=== PATIENT | female | born 1960 ===

== ENCOUNTER 2016-09-01 08:12 | Inpatient (IN) | payer OTHER ==
[~2016-09-01] VITALS: Ht 167.6 cm; Wt 84.8 kg
[~2016-09-01 08:12] MED LIST: CYTOMEL25 MCG ORAL; SYNTHROID112 MCG ORAL; [UNRECOGNIZED DRUG - OTHER]; [UNRECOGNIZED DRUG - OTHER] PO
--- NOTE | 2016-09-09 18:15 | Pre-op HX & Phy Repo 2 SIG ---
DATE OF ADMISSION: 09/10/2016 HISTORY OF PRESENT ILLNESS: The patient is a 56-year-old female in overall stable health with a malfunctioning Kock pouch continent ileostomy with difficulty with intubation and persistently painful intubations and some incontinence. The patient originally had surgery in 1990 for endometriosis which resulted in severed nerves and sphincter damage. In 1992 she underwent total colectomy with creation of an ileoanal J pouch. In 1998 because her J-pouch was severely malfunctioning, she underwent takedown of the J-pouch and creation of a Kock pouch continent ileostomy. She required revision for repair of parastomal hernia in 1999. In 2012 underwent laparotomy with extensive lysis of adhesions and creation of a new valve and stoma with preservation of the existing Kock pouch and repair of a parastomal hernia because of a slipped valve. The patient had been doing well until several months ago when she noticed bulging near the stoma and difficulty inserting her intubation catheter. She usually intubates her pouch to evacuate waste and gas 6 to 8 times per day and feels that she has incomplete emptying. Her output is normal in consistency. She takes vitamin C on occasion for thick effluent. The patient had a CT scan in July 2016 of abdomen and pelvis which confirmed the presence of a parastomal hernia, but no other abnormality to explain her painful and difficult intubations. The patient is scheduled to undergo endoscopy of her Kock pouch followed by preparation for surgery and then surgery as warranted by the endoscopic and other findings. MEDICATIONS: Synthroid, Cytomel nasal spray for allergies. ALLERGIES TO MEDICATIONS: Penicillin, Ceclor, Macrodantin, Compazine, erythromycin, fentanyl, tape except for Medipore and paper tape, sulfa, Lyrica, and Neurontin. PAST SURGICAL HISTORY: In addition to the above, the patient underwent total abdominal hysterectomy in 2010. She has undergone six hip operations and two knee operations in the past. 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 The patient is arriving [id number] and will be examined upon arrival and dictated separately. IMPRESSION: 1. Malfunctioning Kock pouch continent ileostomy with multiply recurrent parastomal hernia and difficult and painful intubations and incontinence 2. History of multiple abdominal operations: 2.1. Laparotomy for severe endometriosis resulting in nerve injury and sphincter dysfunction in 1990. 2.2. Total colectomy with ileoanal J-pouch in 1992. 2.3. Kock pouch 1998. 2.4. Repair of Kock pouch parastomal hernia in 2004. 2.5. Total abdominal hysterectomy 2010. 2.6. Laparotomy with complex revision of Kock pouch with creation of new valve and stoma with extensive lysis of adhesions and repair of parastomal hernia and temporary catheter gastrostomy in July 2012. PLAN AND DISCUSSION: I have had a full discussion with the patient regarding the nature of her condition and the need for pouch endoscopy and preparation for surgery. This will include insertion of a dual lumen PICC line, intravenous hydration during her bowel prep, and preoperative intravenous antibiotics and subcutaneous heparin. The patient will undergo pouch endoscopy, which will not require anesthesia or sedation. Determination will be made whether the problem can be resolved with repair of the multiply recurrent parastomal hernia avoiding laparotomy or whether there is some additional or separate complicating problem with the pouch causing the difficulty with intubation. This will be determined upon examination including the endoscopy. I have discussed the risks of surgery including bleeding, infection, injury to adjacent structures or organs, recurrent difficulties with her Kock pouch or stoma that could require more surgery, deep vein thrombosis or other complications despite prophylaxis, anesthetic reactions, etc. all questions have been answered. She understands and agrees to proceed. Nick Armijo M.D. DR: Jessica JOB#: [id number] TAMARA
[2016-09-10 10:03] LABS: BASOPHILS % (AUTO) 0.7 % (0.0-2.0); EOSINOPHILS % (AUTO) 1.2 % (0.0-3.0); LYMPHOCYTES % (AUTO) 31.1 % (20.0-45.0); MEAN CORPUSCULAR HEMOGLOBIN 25.9 PG (27.0-31.0); MEAN CORPUSCULAR HGB CONC 31.3 G/DL (32.0-36.0); MEAN CORPUSCULAR VOLUME 83 FL (80-99); MEAN PLATELET VOLUME 8.1 FL (6.5-10.1); MONOCYTES % (AUTO) 8.5 % (1.0-10.0); NEUTROPHILS % (AUTO) 58.6 % (45.0-75.0); PLATELET COUNT 236 K/UL (150-450); RED BLOOD COUNT 5.26 M/UL (4.20-5.40); RED CELL DISTRIBUTION WIDTH 13.9 % (11.6-14.8); WHITE BLOOD COUNT 6.5 K/UL (4.8-10.8)
[2016-09-10 10:06] VITALS: BP 113/61
[2016-09-10 10:13] LABS: INR 0.9 (0.9-1.1); PROTHROMBIN TIME 9.5 SEC (9.30-11.50)
[2016-09-10 10:21] LABS: ALANINE AMINOTRANSFERASE 16 U/L (3-33); ALBUMIN/GLOBULIN RATIO 1.5 (1.0-2.7); ANION GAP 16 (5-15); ASPARTATE AMINO TRANSFERASE 20 U/L (5-40); CALCIUM 9.9 mg/dL (8.6-10.2); CARBON DIOXIDE 24 mEQ/L (20-30); CHLORIDE 104 mEQ/L (98-107); CREATININE 0.7 mg/dL (0.5-0.9); GLOMERULAR FILTRATION RATE > 60 mL/min (>60); HEMOLYSIS 2; POTASSIUM 4.4 mEQ/L (3.4-4.9); SODIUM 144 mEQ/L (135-145)
--- NOTE | 2016-09-10 11:30 | Diagnostic Imaging Report ---
Indications: Shortness of breath Technique: Portable AP chest Findings: Comparison: 07/25/2012 Cardiac silhouette remains normal in size. Pulmonary vasculature remains within normal limits. Lungs and pleura remain clear. Mild calcification of the aortic arch, thoracic vertebral osteophytes again noted. Previous PICC no longer present.. IMPRESSION: No evidence of acute disease, unchanged Interval PICC removal Stable chronic changes as described
--- NOTE | 2016-09-10 11:39 | Pre-Procedure Note/Attestation ---
Pre-Procedure Note/Attestation Complete Prior to Procedure Planned Procedure: not applicable Procedure Narrative: Kock Pouch endoscopy Indications for Procedure Pre-Operative Diagnosis: Malfunctioning Kock Pouch Attestation I attest that I discussed the nature of the procedure; its benefits; risks and complications; and alternatives (and the risks and benefits of such alternatives ), prior to the procedure, with the patient (or the patient's legal lifeline representatives). I attest that, if there was a reasonable possibility of needing a blood transfusion, the patient (or the patient's legal lifeline representatives) was given the [facility] standardized written summary, pursuant to the [place] Blood Safety Act ([place] Health and Safety Code # 1645, as amended). I attest that I re-evaluated the patient just prior to the surgery and that there has been no change in the patient's H&P, except as documented below: none EMILY DAVENPORT Sep 10, 2016 11:39
[2016-09-10] MEDS ORDERED: Heparin 2000 units/Ns 1000ml INJ ONE (11:45)
[2016-09-10] MEDS ORDERED: Lidocaine 1% Plain 30 ml INJ ONE (11:45)
[2016-09-10 12:04] LABS: APPEARANCE,URINE SLIGHTLY CLOUDY; KETONES,URINE 1+ (NEGATIVE); LEUKOCYTE ESTERASE ,URINE 3+ (NEGATIVE); NITRITE,URINE NEGATIVE (NEGATIVE); PH,URINE 5 (4.5-8.0); PROTEIN,URINE 1+ (NEGATIVE); UROBILINOGEN,URINE NORMAL MG/DL (0.0-1.0)
[2016-09-10 12:13] LABS: BACTERIA,URINE FEW /HPF; SQUAMOUS EPITHELIAL CELL,UR FEW /LPF (NONE/OCC); WBC,URINE 40-60 /HPF (0 - 2)
--- NOTE | 2016-09-10 12:13 | Brief Operative Note ---
Immediate Post Operative Note Operative Note Pre-op Diagnosis: Malfunctioning Kock Pouch Procedure: Kock Pouch endoscopy Post-op Diagnosis: Partially slipped valve; recurrent parastomal hernia Post-op Diagnosis: same as pre-op Findings: consistent w/pre-op dx studies Surgeon: gianfranco Anesthesia: other - none Specimen: none Complications: none Condition: stable Estimated Blood Loss: none Drains: other - 28 Fr ayers to Kock Pouch Implant(s) used?: EMILY Mccormack Sep 10, 2016 12:13
--- NOTE | 2016-09-10 12:15 | General Progress Note ---
Progress Note Progress Note H&P dictated. Endoscopy reveals a slight partial valve desussception. Full discussion with patient re need for laparotomy, revision Kock pouch valve, repair recurrent parastomal hernia with mesh possible relocation of stoma. EMILY DAVENPORT Sep 10, 2016 12:15
[2016-09-10] MEDS: Neomycin Sulfate 500mg Tab ORAL SCH ×3 (13:32→20:29)
--- NOTE | 2016-09-10 14:52 | Diagnostic Imaging Report ---
Indications: Long-term central IV access required for intravenous therapy Technique: The procedure indications, risks, and alternatives were explained to the patient who understands and gives consent to proceed. Strict aseptic technique was utilized, including hand washing, use of hat and mask, use of sterile gown and gloves, sterile ultrasound gel and probe cover, prepping of right arm skin with 2% chlorhexidine solution, and application of full-body sterile barrier over this area. Skin and subcutaneous soft tissues were infiltrated with 1% lidocaine and sodium bicarbonate. A small dermatotomy was made, through which the larger of two patent, adequate size right brachial veins was punctured percutaneously under direct sonographic guidance with a 21-gauge needle. Exchange was made over a 0.018 inch guidewire for a 5 Maori peel-away sheath. A [employer] Power-PICC 5 Maori dual lumen central venous catheter was cut to appropriate length, then advanced through the sheath over the guidewire under direct fluoroscopic guidance into the superior vena cava. Guidewire and sheath were removed. Both catheter ports were aspirated, then flushed with heparinized saline. Final image was obtained. Catheter was secured the skin with adhesive dressing. Patient tolerated procedure well without immediate complications. Total fluoroscopy time: 0.1 minutes. Dose-area product: 2.1 dGy-cm2 Findings: Final image demonstrates tip of the central venous catheter at the level of superior vena cava-right atrial junction, 37 cm in from the skin. Both ports aspirate and flush freely. IMPRESSION:? Placement of peripherally inserted central venous catheter via right brachial vein, working well.
[2016-09-10 16:05] VITALS: BP 139/70
--- NOTE | 2016-09-10 16:11 | Consultation ---
Consult Note Consult Note Chart reviewed, Patient examined. 56 year old female with h/o chest pain, possible old LA with normal coronary angiogram who developed RCA osteal stenosis during angiography and has been diagnosed with Prinzmetal angina. Patient is admitted for revision of Kock pouch. Her cardiac status has been relatively stable and she has has used NTG SL very occasionally, but lives a sedentary life style. EKG : WNL Imp: 1. Malfunctioning Kock pouch 2.H/O chest pain- stable 3. Normal coronary anatomy with possible Prinzmetal angina. 4. Remote h/o smoking. Plan: May proceed with surgery suggest cardiac monitoring for 24 hours post OP NTG PRN will follow. Jose Heredia M.D. PATY HEREDIA Sep 10, 2016 16:11
--- NOTE | 2016-09-10 17:00 | Pre-op HX & Phy Repo 2 SIG ---
DATE OF ADMISSION: 09/10/2016 HISTORY OF PRESENT ILLNESS: [place] Please see previously dictated history. PHYSICAL EXAMINATION: GENERAL: She is well developed and well nourished, 5 feet 6 inches, approximately 200 pounds. VITAL SIGNS: Within normal limits. HEENT: Within normal limits. LUNGS: Clear. HEART: Regular rhythm. BREASTS: Without masses. ABDOMEN: Soft, flat, slightly obese. There is a curvilinear vertical incision in left paramedian location from midepigastrium to pubis. The stoma of the Kock pouch is low in the right lower quadrant with a 5 cm x 6 cm reducible parastomal hernia. There is no evidence of incisional hernia. PELVIC: Status post hysterectomy. RECTAL: Status post proctocolectomy with minimal rectal stump. EXTREMITIES: Without edema. Pulses 2+ femoral to pedal bilateral NEUROLOGIC: Physiologic. IMPRESSION: 1. Malfunctioning Kock pouch continent ileostomy with difficult and painful intubation and incontinence and multiply recurrent parastomal hernia. 2. History of Prinzmetal angina. 3. History of multiple hip and knee operations with metallosis. 4. Hypothyroidism. 5. Neurogenic bladder on timed voiding 6. Status post multiple abdominal operations. 1. Laparotomy for severe endometriosis resulting in nerve injury and sphincter dysfunction in 1990. 2. Total colectomy with ileoanal J pouch in 1992. 3. Kock pouch in 1998. 4. Repair of Kock pouch parastomal hernia in 2004. 5. Total abdominal hysterectomy in 2010. 6. Laparotomy with complex revision of Kock pouch with creation of new valve and stoma with extensive lysis of adhesions and repair of parastomal hernia and temporary gastrostomy in July 2012. DISCUSSION: In view of the endoscopy findings revealing a partially slipped valve, the patient will require laparotomy as well as possible takedown of the stoma, possible relocation of the stoma and repair of the recurrent parastomal hernia, likely requiring mesh. I have had a full discussion with the patient regarding the nature of the surgery, indications, alternatives, options, and risks including bleeding, infection, injury to adjacent structures or organs, deep vein thrombosis despite prophylaxis, recurrent difficulties with the Kock pouch or stoma that require could require additional surgery, etc. All questions have been answered. She understands and agrees to proceed. Don Judie Armijo DR: PRACHI JOB#: [id number] MTDRadha
[2016-09-10] MEDS: D5 1/2NS w/KCl 20mEq 1,000 ML IV SCH (17:52)
--- NOTE | 2016-09-10 18:15 | Procedure Note ---
DATE OF PROCEDURE: 09/10/2016 ENDOSCOPY PROCEDURE REPORT ENDOSCOPIST: Nick Armijo M.D. ANESTHESIA: None. SEDATION: None. TYPE OF ENDOSCOPY: Kock pouch endoscopy. PRE-ENDOSCOPY DIAGNOSES: 1. Malfunctioning Kock pouch continent ileostomy with difficult and painful intubations and incontinence. 2. History of total colectomy with ileoanal J-pouch, which subsequently failed, converted to Kock pouch. 3. Original surgery for endometriosis resulting in nerve injury and sphincter dysfunction in 1990. 4. Most recent revision of Kock pouch in July 2012 with creation of new valve POST-ENDOSCOPY DIAGNOSES: 1. Malfunctioning Kock pouch continent ileostomy with difficult and painful intubations and incontinence. 2. History of total colectomy with ileoanal J-pouch, which subsequently failed, converted to Kock pouch. 3. Original surgery for endometriosis resulting in nerve injury and sphincter dysfunction in 1990. 4. Most recent revision of Kock pouch in July 2012 with creation of new valve ENDOSCOPY PERFORMED: Kock pouch endoscopy. DESCRIPTION OF PROCEDURE: The patient was positioned supine in the GI lab without requiring any anesthesia or sedation. Using a GIF-P140 endoscope the stoma was entered. The distance to the tip of the nipple valve was 10 to 11 cm, slightly redundant. The pouch is distensible and of good capacity. the mucosa appears completely normal. Retroflexed views revealed the nipple valve with a small 5 to 10% desussception, but otherwise it was well-formed. Withdrawal views confirmed the above findings including an angulation at approximately 8 cm deep. After removing the endoscope, I was able to manipulate a 28-Marshallese Gutierrez catheter into the pouch with some degree of manipulation and mild patient discomfort. It was flushed and secured to the skin with tape and connected to a gravity drainage bag. The patient will be prepared for surgery. She tolerated the endoscopy well. Nick Armijo M.D. DR: SARA JOB#: [id number] TAMARA
[2016-09-10 20:00] VITALS: BP 111/78
--- NOTE | 2016-09-10 20:24 | Anethesia Preoperative Eval ---
Anesthesia Pre-op PMH/ROS General Date of Evaluation: Sep 10, 2016 Anesthesiologist: Magdi ASA Score: ASA 3 Mallampati Score Class I : Soft palate, uvula, fauces, pillars visible Class II: Soft palate, uvula, fauces visible Class III: Soft palate, base of uvula visible Class IV: Only hard plate visible Mallampati Classification: Class II Surgeon: Zofia Diagnosis: Malfunctioning kock pouch Surgical Procedure: REvision francisco pouch Anesthesia History: none, PONV - severe Family History: no anesthesia problems Allergies: Coded Allergies: CEFACLOR (Verified Allergy, Severe, Hives, 06/22/12) ERYTHROMYCIN BASE (Verified Allergy, Severe, Rash, 06/22/12) NITROFURANTOIN MACROCRYSTAL (Verified Allergy, Severe, Itching, 06/22/12) PENICILLINS (Verified Allergy, Severe, Anaphylaxis, 06/22/12) PROPOXYPHENE HCL (Verified Allergy, Severe, Hives, 06/22/12) SULFASALAZINE (Verified Allergy, Severe, Hives, 06/22/12) FENTANYL (Verified Adverse Reaction, Intermediate, throw up, 06/22/12) PROCHLORPERAZINE EDISYLATE (Verified Adverse Reaction, LEUKOPENIA, 08/03/12 ) COPIED FROM UNCODED SECTION PROCHLORPERAZINE MALEATE (Verified Adverse Reaction, LEUKOPENIA, 08/03/12) COPIED FROM UNCODED SECTION Uncoded Allergies: COCONUT (Allergy, Severe, 07/25/12) tapes (Allergy, Severe, blisters, 06/22/12) Medications: see eMAR Past Medical History Cardiovascular: Reports: [place] - 6 years ago, arrhythmia - baseline bradycardic, other - h/o prinzmetals angina-precipitate by stress as per patient, Denies: CAD, HTN, valve dz Pulmonary: Reports: JIMMY - mild, no cpap at the time as patient couldnt tolerate it, Denies: COPD, asthma, other Gastrointestinal/Genitourinary: Reports: GERD, Denies: CRI, ESRD, other Neurologic/Psychiatric: Reports: depression/anxiety - severe anxiety, Denies: CVA, TIA, dementia, other Endocrine: Reports: hypothyroidism, Denies: DM, other, steroids HEENT: Denies: [place] (L), [place] (R), cataract (L), cataract (R), glaucoma, other Hematology/Immune: Reports: anemia - chronic , Denies: DVT, bleeding disorder, other Musculoskeletal/Integumentary: Reports: other - bialteral chronic lower extremity pain, Denies: DDD, DJD, OA, RA, edema Other: obesity PSxH Narrative: Bilateral THR's, right knee arthroscopy, francisco pouch, CASEY, T&A Anesthesia Pre-op Phys. Exam Physician Exam Last Vital Signs Date Time Temp Pulse Resp B/P Pulse Ox O2 Delivery O2 Flow Rate FiO2 09/10/16 16:05 96.8 76 20 139/70 97 Room Air Constitutional: other - Patient AAOx3, cooperative, but fairly anxious about the surgery, tearful Cardiovascular: RRR Respiratory: CTA Airway Exam Mallampati Score: Class II MO: full ROM: full Teeth: intact, other - no dentures, +fixed implants Dentures: no lower, no upper Anesthesia Pre-op A/P Labs Hematology Test 09/10/16 09:40 White Blood Count 6.5 K/UL (4.8-10.8) Red Blood Count 5.26 M/UL (4.20-5.40) Hemoglobin 13.6 G/DL (12.0-16.0) Hematocrit 43.5 % (37.0-47.0) Mean Corpuscular Volume 83 FL (80-99) Mean Corpuscular Hemoglobin 25.9 PG (27.0-31.0) L Mean Corpuscular Hemoglobin Concent 31.3 G/DL (32.0-36.0) L Red Cell Distribution Width 13.9 % (11.6-14.8) Platelet Count 236 K/UL (150-450) Mean Platelet Volume 8.1 FL (6.5-10.1) Neutrophils (%) (Auto) 58.6 % (45.0-75.0) Lymphocytes (%) (Auto) 31.1 % (20.0-45.0) Monocytes (%) (Auto) 8.5 % (1.0-10.0) Eosinophils (%) (Auto) 1.2 % (0.0-3.0) Basophils (%) (Auto) 0.7 % (0.0-2.0) Coagulation Test 09/10/16 09:40 Prothrombin Time 9.5 SEC (9.30-11.50) Prothromb Time International Ratio 0.9 (0.9-1.1) Activated Partial Thromboplast Time 26 SEC (23-33) Chemistry Test 09/10/16 09:40 Sodium Level 144 mEQ/L (135-145) Potassium Level 4.4 mEQ/L (3.4-4.9) Chloride Level 104 mEQ/L (98-107) Carbon Dioxide Level 24 mEQ/L (20-30) Anion Gap 16 (5-15) H Blood Urea Nitrogen 13 mg/dL (7-23) Creatinine 0.7 mg/dL (0.5-0.9) Estimat Glomerular Filtration Rate > 60 mL/min (>60) Glucose Level 106 mg/dL (74-106) Calcium Level 9.9 mg/dL (8.6-10.2) Total Bilirubin 0.5 mg/dL (0.0-1.2) Aspartate Amino Transf (AST/SGOT) 20 U/L (5-40) Alanine Aminotransferase (ALT/SGPT) 16 U/L (3-33) Alkaline Phosphatase 112 U/L (35-104) H Total Protein 7.0 g/dL (6.6-8.7) Albumin 4.2 g/dL (3.5-5.2) Globulin 2.8 g/dL Albumin/Globulin Ratio 1.5 (1.0-2.7) Studies Pre-op Studies: EKG - sr Risk Assessment & Plan Assessment: ASA III Plan: GA-ETT, patient reports multiple allergies including fentanyl and morphine which cause her projectile vomitting. She States that dilaudid and demerol work best for her in combination with benadryl prophylactically as she gets severe itchiness. Also reports severe allergy to most tapes, except paper tape Status Change Before Surgery: No Pre-Antibiotics Drug: MARTA SHAH M.D. Sep 10, 2016 20:24
[2016-09-10] MEDS ORDERED: Norco 5mg/325mg tab ORAL PRN (21:00)
[2016-09-11] VITALS (15 sets, daily range): BP systolic 124–152; BP diastolic 63–78
[2016-09-11] MEDS: metroNIDAZOLE 500mg 100 ML IVPB SCH ×4 (01:06→18:50)
[2016-09-11] MEDS: D5 1/2NS w/KCl 20mEq 1,000 ML IV SCH ×2 (01:43→14:00)
--- NOTE | 2016-09-11 08:40 | Pre-Procedure Note/Attestation ---
Pre-Procedure Note/Attestation Complete Prior to Procedure Planned Procedure: not applicable Procedure Narrative: laparotomy with revision Kock Pouch, repair recurrent parastomal hernia, gastrostomy Indications for Procedure Pre-Operative Diagnosis: Malfunctioning Kock Pouch Attestation I attest that I discussed the nature of the procedure; its benefits; risks and complications; and alternatives (and the risks and benefits of such alternatives ), prior to the procedure, with the patient (or the patient's legal safety representative). I attest that, if there was a reasonable possibility of needing a blood transfusion, the patient (or the patient's legal safety representative) was given the [facility] standardized written summary, pursuant to the [place] Blood Safety Act ([place] Health and Safety Code # 1645, as amended). I attest that I re-evaluated the patient just prior to the surgery and that there has been no change in the patient's H&P, except as documented below: none EMILY DAVENPORT Sep 11, 2016 08:40
[2016-09-11] MEDS: Liothyronine 5mcg tab ORAL SCH (09:00)
[2016-09-11] MEDS ORDERED: Heparin 5000 units/ml inj SUBQ ONE (09:00)
[2016-09-11] MEDS ORDERED: Bacitracin 50000 Units Vial ONE (09:34)
--- NOTE | 2016-09-11 10:12 | Cardiology Progress Note ---
Assessment/Plan Status Narrative 1. Malfunctioning Kock Pouch 2. Possible Prinzmetal angina-stable 3. Normal LV function Assessment/Plan Stable for surgery. Teler monitoring 24 hours post op will follow as needed.. Subjective Cardiovascular: Reports: no symptoms Respiratory: Reports: no symptoms Gastrointestinal/Abdominal: Reports: no symptoms Genitourinary: Reports: no symptoms Subjective Awaiting surgery today Objective Last 24 Hour Vital Signs Date Time Temp Pulse Resp B/P Pulse Ox O2 Delivery O2 Flow Rate FiO2 09/11/16 08:00 97.0 82 20 136/78 95 Room Air 09/11/16 04:00 97.8 54 18 134/67 99 Room Air 09/11/16 00:00 97.4 57 18 124/63 100 Room Air 09/10/16 20:00 97.8 68 18 111/78 99 Room Air 09/10/16 16:05 96.8 76 20 139/70 97 Room Air Cardiovascular: normal rate, regular rhythm, no gallop/murmur Respiratory/Chest: chest wall non-tender, lungs clear, normal breath sounds Abdomen: normal bowel sounds, non tender, soft, no organomegaly Extremities: non-tender, normal inspection, no swelling Intake and Output 09/10/16 09/11/16 19:00 07:00 Intake Total 1035 ml 1140 ml Output Total 200 ml 1220 ml Balance 835 ml -80 ml Intake Oral 935 ml 240 ml IV Total 100 ml 900 ml Output Urine Total 200 ml 400 ml Other 820 ml # Voids 2 2 Laboratory Tests Test 09/10/16 11:30 Urine Color Pale yellow Urine Appearance Slightly cloudy Urine pH 5 (4.5-8.0) Urine Specific [place] 1.025 (1.005-1.035) Urine Protein 1+ (NEGATIVE) H Urine Glucose (UA) Negative (NEGATIVE) Urine Ketones 1+ (NEGATIVE) H Urine Occult Blood 2+ (NEGATIVE) H Urine Nitrite Negative (NEGATIVE) Urine Bilirubin Negative (NEGATIVE) Urine Urobilinogen Normal MG/DL (0.0-1.0) Urine Leukocyte Esterase 3+ (NEGATIVE) H Urine RBC 2-4 /HPF (0 - 2) H Urine WBC 40-60 /HPF (0 - 2) H Urine Squamous Epithelial Cells Few /LPF (NONE/OCC) Urine Bacteria Few /HPF (NONE) PATY PRASAD Sep 11, 2016 10:11
[2016-09-11] MEDS ORDERED: NS Irrig 1000ml ONE ×2 (10:24→11:00)
[2016-09-11] MEDS ORDERED: Tubing IV Secondary IV ONE (10:24)
[2016-09-11] MEDS ORDERED: Nitroglycerin Subl 0.4mg tab (Bottle Of 25) SL PRN (10:45)
[2016-09-11] MEDS ORDERED: DiphenhydrAMINE 50mg/ml Inj ONE (10:57)
[2016-09-11] MEDS ORDERED: ePHEDrine 50mg/ml Inj ONE (11:00)
[2016-09-11] MEDS ORDERED: fentaNYL 250mcg/5ml ONE (11:00)
[2016-09-11] MEDS ORDERED: Sterile Water Irrig 1000ml IRRIG ONE (11:00)
[2016-09-11] MEDS ORDERED: LR 1000ml ONE (11:00)
[2016-09-11] MEDS ORDERED: Propofol 10mg/ml 20ml IV ONE (11:00)
[2016-09-11] MEDS ORDERED: Nimbex 2mg/ml Inj 10ML IVP ONE (11:00)
[2016-09-11] MEDS ORDERED: Midazolam 2mg/2ml Inj ONE (11:00)
[2016-09-11] MEDS ORDERED: Glycopyrrolate 0.2mg/ml 1ml Vial ONE (11:00)
[2016-09-11] MEDS ORDERED: Neostigmine 1mg/ml 10ml Inj ONE (11:00)
[2016-09-11] MEDS ORDERED: Ketorolac 30mg Inj ONE (11:00)
[2016-09-11] MEDS ORDERED: metroNIDAZOLE 500mg 100 ML IV SCH (12:00)
[2016-09-11] MEDS ORDERED: Dyna-Hex 2% Top Sol 8oz TOPIC SCH (12:00)
[2016-09-11] MEDS ORDERED: Ketorolac 30mg Inj IV PRN (12:30)
[2016-09-11] MEDS ORDERED: Midazolam 2mg/2ml Inj IVP PRN (12:30)
[2016-09-11] MEDS ORDERED: Meperidine 25mg/0.5ml Inj (FOR RIGORS ONLY) IV PRN (12:30)
[2016-09-11] MEDS ORDERED: Metoclopramide 10mg/2ml Inj IVP PRN ×2 (12:30→16:00)
[2016-09-11] MEDS ORDERED: LR 1000ml 1,000 ML IVLG SCH (12:30)
[2016-09-11] MEDS ORDERED: DiphenhydrAMINE 50mg/ml Inj IVP PRN (12:30)
[2016-09-11] MEDS ORDERED: Hydromorphone 0.5mg/0.5ml inj IVP PRN (12:30)
--- NOTE | 2016-09-11 14:30 | Consultation ---
DATE OF CONSULTATION: 09/10/2016 CARDIOLOGY CONSULTATION ATTENDING PHYSICIAN: Nick Armijo M.D. REASON FOR CONSULTATION: Preoperative cardiac evaluation. HISTORY OF PRESENT ILLNESS: The patient is a 56-year-old female with history of malfunctioning ileostomy, who has been admitted for revision of a Kock pouch. The patient has history of chest pain in the past and has had previous cardiac workup with angiography, which has shown normal coronary arteries with evidence of possible right coronary artery, also spasm during the angiography. The patient has been diagnosed with Prinzmetal angina and has been given nitroglycerin p.r.n. for control of chest pain. The patient has had episodes of chest pain on and off, but over the past year she has been stable with some occasional chest pain episodes. The patient has not tolerated calcium channel blockers or long-acting nitrates because of symptoms. The patient has been sedentary, but is able to manage her daily activities without difficulty. She has had multiple surgeries over the past few years without complications or cardiac events. Her echocardiogram shows normal LV systolic function. EKG done preoperatively is within normal limits. The patient denies chest pain or shortness of breath. PAST MEDICAL HISTORY: 1. Ulcerative colitis, status post ileostomy. 2. 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 3. History of normal coronary artery with possible Prinzmetal angina as noted above. 4. Remote history of smoking. MEDICATIONS: Cytomel 50 mcg daily, Levaquin IV q. 24 hours, levothyroxine 112 mcg daily, and Zofran p.r.n. PHYSICAL EXAMINATION: VITAL SIGNS: Blood pressure is 139/70, temperature afebrile, and heart rate is 76. GENERAL: The patient is alert, oriented, pleasant female, in no apparent distress. HEENT: Unremarkable. NECK: Supple. LUNGS: Without rales or wheezes. CARDIAC: S1 and S2 are normal without S3, S4. Jugular venous pressure is normal. ABDOMEN: Soft and nontender. Bowel sounds are present. EXTREMITIES: Without cyanosis, clubbing, or edema. DIAGNOSTIC AND LABORATORY DATA: EKG is within normal limits. Laboratory data reviewed. Prior hospital records with angiography and stress test as well as echocardiography reviewed from outside hospital. IMPRESSION: 1. Malfunctioning Kock pouch. 2. Possible Prinzmetal angina. 3. Remote history of smoking. 4. Hypothyroidism. PLAN: The patient is stable to proceed with surgery as her symptoms are stable and she does not have exertional angina. She may use nitroglycerin as needed postoperatively. It would be prudent to monitor her in telemetry for the first [address] Armijo, thank you for allowing me to participate in the care of this patient and I will be happy to follow with you as necessary. Anam Heredia M.D. DR: DEB JOB#: [id number] CC:
--- NOTE | 2016-09-11 14:31 | Brief Operative Note ---
Immediate Post Operative Note Operative Note Pre-op Diagnosis: Malfunctioning Kock Pouch Procedure: Laparotomy with revision Kock Pouch access segment and stoma; repair recurrent parastomal hernia; gastrostomy Post-op Diagnosis: Redundant Kock Pouch access segment; recurrent parastomal hernia Post-op Diagnosis: same as pre-op Findings: consistent w/pre-op dx studies Surgeon: gianfranco Land Surveyor Manager: talat Anesthesiologist: berenice Anesthesia: general Specimen: yes - Kock pouch stoma Complications: none Condition: stable Fluids: see anesthesia record Estimated Blood Loss: volume - 100ml Drains: other - 28 Fr Gutierrez to Kock pouch; 18 Fr gastrostomy Implant(s) used?: No EMILY DAVENPORT Sep 11, 2016 14:31
[2016-09-11] MEDS ORDERED: PCA HYDROmorphone 1mg/ml 30 ML IV ONE (15:35)
[2016-09-11] MEDS ORDERED: PCA HYDROmorphone 1mg/ml 30 ML IV PRN (15:35)
[2016-09-11] MEDS ORDERED: LORazepam 1mg tab SL PRN ×2 (16:00)
[2016-09-11] MEDS ORDERED: Rate Change PCA 1 Each MISC PRN (16:00)
[2016-09-11] MEDS ORDERED: Naloxone 0.4mg/ml Inj IVP PRN (16:00)
[2016-09-11] MEDS ORDERED: Acetaminophen 650mg/20.3ml GT PRN (16:00)
[2016-09-11] MEDS: D5 1/4NS w/KCl 20mEq 1,000 ML IV SCH (18:49)
[2016-09-11] MEDS: PCA shift volume MISC SCH (19:00)
[2016-09-11] MEDS: DiphenhydrAMINE 50mg/ml Inj IVP PRN (21:31)
--- NOTE | 2016-09-11 22:30 | Operative Note - Dictated ---
DATE OF OPERATION: 09/11/2016 SURGEON: Nick Armijo M.D. [employer]ORATORY TECHNICIAN SURGEON: Kike Morrell M.D. ANESTHESIOLOGIST: Ihsan Phillips M.D. TYPE OF ANESTHESIA: General endotracheal. PREOPERATIVE DIAGNOSES: 1. Malfunctioning Kock pouch continent ileostomy and recurrent parastomal hernia. 2. History of multiple abdominal operations: 2.1. 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 2.2. Total colectomy with ileoanal J-pouch in 1992. 2.3. Kock pouch 1998. 2.4. Repair of Kock pouch parastomal hernia 2004. 2.5. Total abdominal hysterectomy 2010. 2.6. Laparotomy with complex revision of Kock pouch with creation of new valve and stoma with extensive lysis of adhesions and repair of parastomal hernia and temporary catheter gastrostomy in July 2012. POSTOPERATIVE DIAGNOSES: 1. Malfunctioning Kock pouch continent ileostomy and recurrent parastomal hernia. 2. History of multiple abdominal operations: 3. 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 3.1. Total colectomy with ileoanal J-pouch in 1992. 3.2. Kock pouch 1998. 3.3. Repair of Kock pouch parastomal hernia 2004. 3.4. Total abdominal hysterectomy 2010. 3.5. Laparotomy with complex revision of Kock pouch with creation of new valve and stoma with extensive lysis of adhesions and repair of parastomal hernia and temporary catheter gastrostomy in July 2012. OPERATIONS PERFORMED: 1. Laparotomy with revision of Kock pouch access segment and stoma. 2. Repair of recurrent parastomal hernia. 3. Catheter gastrostomy. DESCRIPTION OF PROCEDURE: The patient was taken to the operating room and under general endotracheal anesthesia with sequential compression device stockings and Gutierrez catheter in place and having received preoperative intravenous antibiotics and subcutaneous heparin, the patient was prepped and draped in the usual fashion. The stoma in the right lower quadrant was covered with a Betadine soaked Ray-Patti. The left paramedian incision was reopened from midepigastrium to pubis. There were diffuse adhesions to the anterior abdominal wall and throughout the abdomen. These were taken down and the abdomen explored. A 28-Greenlandic Gutierrez catheter was placed into the stoma and could be manipulated into the pouch. It was clear that the access segment was quite redundant and angulated. There was a loop of small bowel densely adherent within the parastomal hernia and this was taken down. A serosal tear was closed with 3-0 silk suture. The pouch was extremely densely adherent to the undersurface of the bladder and the right gutter and into the pelvis. I was able to identify the afferent bowel coming up from the pouch retrograde. I made an elliptical incision around the stoma in the right lower quadrant transversely oriented and brought the stoma and access segment into the abdomen. Now with the redundant access segment on stretch, a 28-Greenlandic Gutierrez catheter readily entered the pouch. The afferent bowel was manually occluded and the pouch was now distended with 500 mL of saline. There was no extravasation. The catheter was removed and there was no incontinence indicating that the nipple valve was competent. The catheter was reintroduced and the pouch decompressed. I felt that to fully mobilize the pouch would likely result in injury to the pouch, which could lead to having to resect it. Throughout the procedure, the abdominal wall was protected with antibiotic soaked laps and liberal antibiotic irrigation including the stoma site. Now I extended the peristomal incision laterally and was able to identify the abdominal wall fascia of the hernia defect. I used #1 Prolene interrupted inverted [id number] sutures starting at the apex and using three sutures to close the parastomal hernia, but leaving adequate room for the access segment to come back through the same location of the stoma. The abdomen was inspected and hemostasis secured with cautery. The bladder and ureters were protected during the procedure. Now the lateral aspect of the extended peristomal incision was closed with subcutaneous interrupted 3-0 Vicryl and 4-0 Monocryl subcuticular suture. The access segment was brought through the abdominal wall and the 28-Greenlandic Gutierrez readily went through into the pouch. The redundant access segment was excised and the stoma primarily matured with continuous 2-0 chromic locking full-thickness sutures starting at the 3 o'clock and 9 o'clock positions. A very satisfactory stoma was achieved. The pouch catheter was appropriately positioned in the apex of the pouch and then it was sutured to the skin with two sutures of 2-0 silk and marked at the level of the stoma with a 3-0 silk suture. The catheter was flushed and connected to a gravity drainage bag. The bowel loops were all replaced anatomically. In view of all the dissection and manipulation, I felt that decompression with a catheter gastrostomy was indicated. Prior gastrostomy site was taken down and through a separate stab incision in the left upper quadrant an 18-Greenlandic Gutierrez catheter was brought through the abdominal wall, placed into the stomach greater curve anterior wall body between two concentric 2-0 chromic pursestring sutures with the balloon inflated and positioned in the fundus and the stomach sutured to the anterior abdominal wall with multiple interrupted 3-0 silk sutures. The catheter was sutured to the skin with a 2-0 silk suture. The catheter was then flushed and connected to a gravity drainage bag. The field in the abdomen and pelvis was inspected again and hemostasis was satisfactory. The paramedian incision was closed in one layer with continuous #1 Prolene starting at both ends and inverting the knots. Subcutaneous tissues were again irrigated with antibiotic solution, and skin closed with milana. Dry sterile dressings were applied. Final sponge and needle counts were correct. The patient tolerated the procedure well and left the operating room in stable condition. Nick Armijo M.D. DR: Jessica JOB#: [id number] MTDD
[2016-09-12] VITALS: BP 128/59
[2016-09-12] MEDS: metroNIDAZOLE 500mg 100 ML IVPB SCH ×4 (00:11→18:16)
[2016-09-12] MEDS: DiphenhydrAMINE 50mg/ml Inj IVP PRN ×4 (03:35→21:02)
[2016-09-12 04:00] VITALS: BP 116/67
[2016-09-12] MEDS: D5 1/4NS w/KCl 20mEq 1,000 ML IV SCH ×3 (04:30→17:06)
[2016-09-12] MEDS: Liothyronine 5mcg tab ORAL SCH (06:05)
[2016-09-12] MEDS: PCA shift volume MISC SCH ×3 (07:00→19:24)
[2016-09-12 07:48] LABS: BASOPHILS % (AUTO) 0.5 % (0.0-2.0); EOSINOPHILS % (AUTO) 0.9 % (0.0-3.0); LYMPHOCYTES % (AUTO) 22.1 % (20.0-45.0); MEAN CORPUSCULAR HEMOGLOBIN 26.3 PG (27.0-31.0); MEAN CORPUSCULAR HGB CONC 29.2 G/DL (32.0-36.0); MEAN CORPUSCULAR VOLUME 90 FL (80-99); MEAN PLATELET VOLUME 8.4 FL (6.5-10.1); MONOCYTES % (AUTO) 10.8 % (1.0-10.0); NEUTROPHILS % (AUTO) 65.8 % (45.0-75.0); PLATELET COUNT 122 K/UL (150-450); RED BLOOD COUNT 3.28 M/UL (4.20-5.40); RED CELL DISTRIBUTION WIDTH 15.1 % (11.6-14.8); WHITE BLOOD COUNT 5.3 K/UL (4.8-10.8)
[2016-09-12 08:00] VITALS: BP 131/62
--- NOTE | 2016-09-12 08:14 | General Progress Note ---
Progress Note Progress Note AVSS Doing well with some pruritus but comfortable with Dilaudid HELP DESK AGENT. Chest - clear Cor - reg rhythm Abdomen - mild soft distention, incision clean ,stoma pink Overnight: Urine 450 Gastrostomy 30 bilious Kock pouch ileo 30 serous WBC 5300 Hgb 8.6 Platelets 122,000 BMP - wnl Imp. Ileus Anemia - no evidence for acute bleeding Plan: NPO Iron panel, B12 level, folate level; f/u CBC 1700 today and in AM Transfer to [facility] (no need for telemetry now) Mobilize EMILY DAVENPORT Sep 12, 2016 08:14
[2016-09-12 08:27] LABS: ANION GAP 11 (5-15); CALCIUM 8.2 mg/dL (8.6-10.2); CARBON DIOXIDE 25 mEQ/L (20-30); CHLORIDE 102 mEQ/L (98-107); CREATININE 0.7 mg/dL (0.5-0.9); GLOMERULAR FILTRATION RATE > 60 mL/min (>60); HEMOLYSIS 13; POTASSIUM 3.9 mEQ/L (3.4-4.9); SODIUM 138 mEQ/L (135-145)
[2016-09-12] MEDS ORDERED: Dyna-Hex 2% Top Sol 8oz TOPIC SCH (09:00)
[2016-09-12] MEDS ORDERED: Naloxone 0.4mg/ml Inj IVP PRN (09:00)
[2016-09-12] MEDS ORDERED: DiphenhydrAMINE 50mg/ml Inj IVP PRN (09:00)
[2016-09-12] MEDS: Dyna-Hex 2% Top Sol 8oz TOPIC SCH (09:00)
[2016-09-12] MEDS ORDERED: Rate Change PCA 1 Each MISC PRN (09:00)
[2016-09-12] MEDS ORDERED: Nitroglycerin Subl 0.4mg tab (Bottle Of 25) SL PRN (09:00)
[2016-09-12 09:14] LABS: HEMOLYSIS 6; IRON 58 ug/dL (37-145); TOTAL IRON BINDING CAPACITY 304 ug/dL (250-400)
[2016-09-12] MEDS ORDERED: Norco 5mg/325mg tab ORAL PRN (10:00)
[2016-09-12] MEDS ORDERED: Metoclopramide 10mg/2ml Inj IVP PRN (10:00)
--- NOTE | 2016-09-12 10:00 | 48 Hour Post Anesthesia Eval ---
Post Anesthesia Evaluation Procedure: Laparotomy, revision kock pouch Date of Evaluation: Sep 12, 2016 Time of Evaluation: 08:10 Blood Pressure Systolic: 131 0: 62 Pulse Rate: 79 Respiratory Rate: 17 Temperature (Fahrenheit): 99.1 O2 Sat by Pulse Oximetry: 99 Airway: patent Nausea: No Vomiting: No Pain Intensity: 2 Hydration Status: adequate Cardiopulmonary Status: at baseline Mental Status/LOC: patient returned to baseline Post-Anesthesia Complications: 0 Follow-up care needed: N/A - further care as per primary team MARTA RUIZ M.D. Sep 12, 2016 10:00
[2016-09-12 12:00] VITALS: BP 124/71
[2016-09-12] MEDS ORDERED: LORazepam 1mg tab SL PRN ×2 (12:00→21:00)
[2016-09-12] MEDS ORDERED: Acetaminophen 650mg/20.3ml GT PRN (12:00)
[2016-09-12] MEDS ORDERED: Vitamin B12 1000mcg/ml Inj IM ONE (15:30)
[2016-09-12 16:00] VITALS: BP 125/61
[2016-09-12 17:57] LABS: BASOPHILS % (AUTO) 0.6 % (0.0-2.0); EOSINOPHILS % (AUTO) 0.6 % (0.0-3.0); LYMPHOCYTES % (AUTO) 24.1 % (20.0-45.0); MEAN CORPUSCULAR HGB CONC 32.4 G/DL (32.0-36.0); MEAN CORPUSCULAR VOLUME 83 FL (80-99); MEAN PLATELET VOLUME 9.3 FL (6.5-10.1); NEUTROPHILS % (AUTO) 64.7 % (45.0-75.0); PLATELET COUNT 139 K/UL (150-450); RED BLOOD COUNT 3.65 M/UL (4.20-5.40); WHITE BLOOD COUNT 6.2 K/UL (4.8-10.8)
[2016-09-12] MEDS ORDERED: NS 550ML IV ONE (18:08)
[2016-09-12] MEDS: PCA HYDROmorphone 1mg/ml 30 ML IV PRN (18:24)
[2016-09-12 20:11] VITALS: BP 116/62
[2016-09-12] MEDS: Iron Sucrose 100 MG in NS 55 ML IVPB SCH (21:02)
[2016-09-13 00:08] VITALS: BP 117/59
[2016-09-13] MEDS: HydrOXYzine 50mg cap ORAL PRN ×3 (01:23→20:06)
[2016-09-13] MEDS: metroNIDAZOLE 500mg 100 ML IVPB SCH ×2 (01:23→06:23)
[2016-09-13] MEDS: DiphenhydrAMINE 50mg/ml Inj IVP PRN ×5 (03:21→22:41)
[2016-09-13 04:00] VITALS: BP 108/57
[2016-09-13] MEDS: D5 1/4NS w/KCl 20mEq 1,000 ML IV SCH ×2 (04:18→16:11)
[2016-09-13 05:44] LABS: ANION GAP 12 (5-15); CALCIUM 8.5 mg/dL (8.6-10.2); CARBON DIOXIDE 26 mEQ/L (20-30); CHLORIDE 105 mEQ/L (98-107); CREATININE 0.7 mg/dL (0.5-0.9); GLOMERULAR FILTRATION RATE > 60 mL/min (>60); HEMOLYSIS 11; POTASSIUM 3.7 mEQ/L (3.4-4.9); SODIUM 143 mEQ/L (135-145)
[2016-09-13] MEDS: Liothyronine 5mcg tab ORAL SCH (06:27)
[2016-09-13] MEDS: PCA shift volume MISC SCH ×2 (07:00→19:27)
[2016-09-13 08:06] VITALS: BP 114/60
[2016-09-13] MEDS: Dyna-Hex 2% Top Sol 8oz TOPIC SCH (09:13)
[2016-09-13] MEDS ORDERED: NS Irrig 1000ml ONE (09:38)
[2016-09-13 10:03] LABS: EOSINOPHILS % (AUTO) 2.6 % (0.0-3.0); LYMPHOCYTES % (AUTO) 30.7 % (20.0-45.0); MEAN CORPUSCULAR HEMOGLOBIN 26.1 PG (27.0-31.0); MEAN CORPUSCULAR HGB CONC 31.9 G/DL (32.0-36.0); MEAN CORPUSCULAR VOLUME 82 FL (80-99); MEAN PLATELET VOLUME 9.1 FL (6.5-10.1); MONOCYTES % (AUTO) 10.4 % (1.0-10.0); NEUTROPHILS % (AUTO) 55.4 % (45.0-75.0); PLATELET COUNT 122 K/UL (150-450); RED BLOOD COUNT 4.14 M/UL (4.20-5.40); RED CELL DISTRIBUTION WIDTH 13.6 % (11.6-14.8); WHITE BLOOD COUNT 5.9 K/UL (4.8-10.8)
--- NOTE | 2016-09-13 10:11 | General Progress Note ---
Progress Note Progress Note AVSS Ambulating in hallways. Abdomen soft, incision clean, stoma pink Urine 2200 Gastrostomy 490 Kock Pouch ileo - neg.100cc WBC 6200 Hgb up 9.8 Platelets up 139,000 (last night) BMP - wnl AM CBC still pending Iron 58 (37-145) B12 368 (211-946) Imp. Ileus Iron deficiency and low B12 level with post-op anemia Plan: NPO Venofer 100mg IV daily x 5 Vitamin B12 1000mcgt IM x1 EMILY DAVENPORT Sep 13, 2016 10:11
[2016-09-13 12:15] VITALS: BP 107/54
[2016-09-13 16:00] VITALS: BP 105/55
[2016-09-13] MEDS: Iron Sucrose 100 MG in NS 55 ML IVPB SCH (20:05)
[2016-09-13] MEDS: PCA HYDROmorphone 1mg/ml 30 ML IV PRN (20:12)
[2016-09-13 20:23] VITALS: BP 111/62
[2016-09-13] MEDS ORDERED: Heplock Flush 100 units/ml 3 ml syr INJ PRN (22:00)
[2016-09-14 00:40] VITALS: BP 115/65
[2016-09-14] MEDS: D5 1/4NS w/KCl 20mEq 1,000 ML IV SCH ×3 (01:03→23:17)
[2016-09-14 04:23] VITALS: BP 120/60
[2016-09-14] MEDS: DiphenhydrAMINE 50mg/ml Inj IVP PRN ×5 (06:12→23:01)
[2016-09-14] MEDS: Liothyronine 5mcg tab ORAL SCH (06:20)
[2016-09-14] MEDS ORDERED: Rate Change PCA 1 Each MISC PRN (07:00)
[2016-09-14] MEDS: PCA shift volume MISC SCH ×3 (07:00→19:00)
[2016-09-14] MEDS ORDERED: LORazepam 1mg tab ORAL PRN (07:00)
[2016-09-14] MEDS ORDERED: Naloxone 0.4mg/ml Inj IVP PRN (07:00)
[2016-09-14] MEDS ORDERED: PCA HYDROmorphone 1mg/ml 30 ML IV PRN (07:00)
[2016-09-14 07:29] LABS: BASOPHILS % (AUTO) 0.9 % (0.0-2.0); EOSINOPHILS % (AUTO) 3.4 % (0.0-3.0); LYMPHOCYTES % (AUTO) 33.8 % (20.0-45.0); MEAN CORPUSCULAR HEMOGLOBIN 26.1 PG (27.0-31.0); MEAN CORPUSCULAR HGB CONC 31.4 G/DL (32.0-36.0); MEAN CORPUSCULAR VOLUME 83 FL (80-99); MEAN PLATELET VOLUME 8.3 FL (6.5-10.1); MONOCYTES % (AUTO) 8.6 % (1.0-10.0); NEUTROPHILS % (AUTO) 53.3 % (45.0-75.0); PLATELET COUNT 149 K/UL (150-450); RED BLOOD COUNT 3.96 M/UL (4.20-5.40); RED CELL DISTRIBUTION WIDTH 13.7 % (11.6-14.8)
[2016-09-14 07:31] LABS: ANION GAP 14 (5-15); CALCIUM 8.7 mg/dL (8.6-10.2); CARBON DIOXIDE 27 mEQ/L (20-30); CHLORIDE 101 mEQ/L (98-107); CREATININE 0.6 mg/dL (0.5-0.9); GLOMERULAR FILTRATION RATE > 60 mL/min (>60); HEMOLYSIS 21; POTASSIUM 3.8 mEQ/L (3.4-4.9); SODIUM 142 mEQ/L (135-145)
[2016-09-14 08:00] VITALS: BP 102/59
[2016-09-14] MEDS: Dyna-Hex 2% Top Sol 8oz TOPIC SCH (08:36)
--- NOTE | 2016-09-14 09:27 | General Progress Note ---
Progress Note Progress Note AVSS Ambulates well. Had some urine leaking around the Gutierrez catheter. Abdomen soft, flat, non-tender, healing nicely, stoma pink Urine 2650 Gastrostomy 435 Kock Pouch ileo neg. but now bilious drainage WBC 6000 Hgb 10.4 (stable) Platelets up 149,000 BMP - wnl Imp. Ileus Plan: D/C basal infusion of LAMINATOR [employer]FORMS Maintain urinary Gutierrez - dense adhesions to bladder in OR Continue NPO EMILY DAVENPORT Sep 14, 2016 09:27
--- NOTE | 2016-09-14 10:49 | Cardiology Progress Note ---
Assessment/Plan Status Narrative 1. Malfunctioning Kock Pouch 2. Possible Prinzmetal angina-stable- stable. 3. Normal LV function 4. s/p revision of Kock Pouch. -doing well post OP Assessment/Plan Continu current meds. I/S Ambulate DVT Px Cardiac status stable. will follow as needed.. Subjective Cardiovascular: Denies: chest pain Respiratory: Denies: cough, orthopnea, shortness of breath Gastrointestinal/Abdominal: Reports: abdominal pain, constipated Genitourinary: Reports: no symptoms Subjective Ambulating w.o. problem. Pain controlled. No BM. Objective Last 24 Hour Vital Signs Date Time Temp Pulse Resp B/P Pulse Ox O2 Delivery O2 Flow Rate FiO2 09/14/16 08:00 97.9 63 16 102/59 97 Room Air 09/14/16 08:00 18 09/14/16 04:23 97.2 92 18 120/60 96 Room Air 09/14/16 04:00 16 09/14/16 00:40 97.9 69 19 115/65 99 Room Air 09/14/16 00:00 16 09/13/16 20:23 97.7 66 18 111/62 98 Room Air 09/13/16 20:15 16 09/13/16 20:00 16 09/13/16 16:00 18 09/13/16 16:00 97.6 71 21 105/55 99 Room Air 09/13/16 12:15 97.6 68 20 107/54 99 Room Air 09/13/16 12:00 18 Cardiovascular: normal peripheral pulses, normal rate, regular rhythm, no gallop/murmur Respiratory/Chest: lungs clear, normal breath sounds Abdomen: soft, absent bowel sounds, distended Extremities: non-tender, normal inspection, no calf tenderness, no swelling Intake and Output 09/13/16 09/14/16 19:00 07:00 Intake Total 1360 ml 860 ml Output Total 1815 ml 1620 ml Balance -455 ml -760 ml IV Total 1200 ml 860 ml Other 160 ml Output Urine Total 1650 ml 1350 ml Other 165 ml 270 ml # Voids 2 Laboratory Tests Test 09/14/16 06:30 White Blood Count 6.0 K/UL (4.8-10.8) Red Blood Count 3.96 M/UL (4.20-5.40) L Hemoglobin 10.4 G/DL (12.0-16.0) L Hematocrit 33.0 % (37.0-47.0) L Mean Corpuscular Volume 83 FL (80-99) Mean Corpuscular Hemoglobin 26.1 PG (27.0-31.0) L Mean Corpuscular Hemoglobin Concent 31.4 G/DL (32.0-36.0) L Red Cell Distribution Width 13.7 % (11.6-14.8) Platelet Count 149 K/UL (150-450) L Mean Platelet Volume 8.3 FL (6.5-10.1) Neutrophils (%) (Auto) 53.3 % (45.0-75.0) Lymphocytes (%) (Auto) 33.8 % (20.0-45.0) Monocytes (%) (Auto) 8.6 % (1.0-10.0) Eosinophils (%) (Auto) 3.4 % (0.0-3.0) H Basophils (%) (Auto) 0.9 % (0.0-2.0) Sodium Level 142 mEQ/L (135-145) Potassium Level 3.8 mEQ/L (3.4-4.9) Chloride Level 101 mEQ/L (98-107) Carbon Dioxide Level 27 mEQ/L (20-30) Anion Gap 14 (5-15) Blood Urea Nitrogen 3 mg/dL (7-23) L Creatinine 0.6 mg/dL (0.5-0.9) Estimat Glomerular Filtration Rate > 60 mL/min (>60) Glucose Level 96 mg/dL (74-106) Calcium Level 8.7 mg/dL (8.6-10.2) PATY PRASAD Sep 14, 2016 10:49
[2016-09-14 12:00] VITALS: BP 104/49
[2016-09-14] MEDS: HydrOXYzine 50mg cap ORAL PRN ×2 (12:16→23:32)
[2016-09-14] MEDS ORDERED: Cathflo Alteplase 2mg Inj INJ ONE (13:00)
[2016-09-14 16:00] VITALS: BP_SYST 111
[2016-09-14 20:28] VITALS: BP 103/59
--- NOTE | 2016-09-14 20:28 | Cardiology Report ---
APPROVED REPORT EKG Measurement Heart [id number] [place] 134P2 [id number] Normal sinus rhythm Normal ECG
[2016-09-14] MEDS: Iron Sucrose 100 MG in NS 55 ML IVPB SCH (23:06)
[2016-09-15 00:30] VITALS: BP 111/62
[2016-09-15] MEDS: DiphenhydrAMINE 50mg/ml Inj IVP PRN ×5 (03:31→20:45)
[2016-09-15 04:00] VITALS: BP 109/57
[2016-09-15] MEDS ORDERED: PCA HYDROmorphone 1mg/ml 30 ML IV PRN ×2 (07:00→12:30)
[2016-09-15] MEDS: PCA shift volume MISC SCH ×2 (07:00→19:00)
[2016-09-15] MEDS: D5 1/4NS w/KCl 20mEq 1,000 ML IV SCH ×3 (07:00→21:15)
[2016-09-15] MEDS: Dyna-Hex 2% Top Sol 8oz TOPIC SCH (08:19)
[2016-09-15 08:27] VITALS: BP 120/61
[2016-09-15] MEDS: Liothyronine 5mcg tab ORAL SCH (09:27)
--- NOTE | 2016-09-15 09:35 | General Progress Note ---
Progress Note Progress Note AVSS Doing well. Ambulates freely Abdomen soft, flat, healing nicely Gastrostomy 255 Kock Pouch ileo 350 WBC 6000 Hgb 10.4 (stable) Platelets up 149,000 BUN 14 Cr 0.3 Imp. Ileus Plan: Continue NPO Remove urinary Gutierrez in early AM EMILY DAVENPORT Sep 15, 2016 09:35
[2016-09-15] MEDS: HydrOXYzine 50mg cap ORAL PRN ×2 (10:15→10:28)
[2016-09-15 11:59] VITALS: BP 109/65
[2016-09-15] MEDS ORDERED: LORazepam 1mg tab ORAL PRN (12:30)
[2016-09-15] MEDS ORDERED: Rate Change PCA 1 Each MISC PRN (12:30)
[2016-09-15] MEDS ORDERED: Naloxone 0.4mg/ml Inj IVP PRN (12:30)
[2016-09-15] MEDS ORDERED: Sterile Water Irrig 1000ml IRRIG ONE (15:46)
[2016-09-15] MEDS ORDERED: NS Irrig 1000ml ONE (15:46)
[2016-09-15] MEDS ORDERED: NS 275ml ONE (15:46)
[2016-09-15 16:39] VITALS: BP 117/46
[2016-09-15 20:00] VITALS: BP 129/65
[2016-09-15] MEDS: Iron Sucrose 100 MG in NS 55 ML IVPB SCH (20:45)
[2016-09-16] VITALS: BP 127/71
[2016-09-16] MEDS: DiphenhydrAMINE 50mg/ml Inj IVP PRN ×5 (00:55→21:31)
[2016-09-16 04:00] VITALS: BP 115/66
[2016-09-16] MEDS: Liothyronine 5mcg tab ORAL SCH (06:32)
[2016-09-16] MEDS: PCA shift volume MISC SCH ×2 (07:18→19:00)
[2016-09-16 08:00] VITALS: BP 100/53
--- NOTE | 2016-09-16 09:09 | General Progress Note ---
Progress Note Progress Note AVSS Had transient gas pains last night requiring breakthrough pain meds - resolved fully Tongue coated Abdomen soft, healing nicely, non-distended Urine 3025 Gastrostomy 440 Kock Pouch ileo 115 Imp. Resolving ileus Thrush Plan: D/C urinary Gutierrez Clear liquid diet Gastrostomy 3:3 protocol Diflucan 150mg po and Nystatin oral susp. S&S QID D/C Unasyn f/u labs in EMILY DAHL Sep 16, 2016 09:09
[2016-09-16] MEDS ORDERED: Fluconazole 100mg tab ORAL ONE (09:30)
[2016-09-16] MEDS: Dyna-Hex 2% Top Sol 8oz TOPIC SCH (09:48)
[2016-09-16] MEDS: Nystatin Susp 500,000 units/5ml ORAL SCH ×4 (09:48→21:31)
[2016-09-16] MEDS ORDERED: Naloxone 0.4mg/ml Inj IVP PRN (10:00)
[2016-09-16] MEDS ORDERED: PCA HYDROmorphone 1mg/ml 30 ML IV PRN (10:00)
[2016-09-16] MEDS ORDERED: Rate Change PCA 1 Each MISC PRN (10:00)
[2016-09-16] MEDS: HydrOXYzine 50mg cap ORAL PRN (10:05)
[2016-09-16 12:00] VITALS: BP 121/67
[2016-09-16] MEDS: D5 1/4NS w/KCl 20mEq 1,000 ML IV SCH ×2 (13:00→23:00)
[2016-09-16 16:00] VITALS: BP 114/66
[2016-09-16] MEDS ORDERED: Tubing IV Secondary IV ONE (17:32)
[2016-09-16] MEDS: LORazepam 1mg tab ORAL PRN ×2 (18:23→23:48)
[2016-09-16 20:00] VITALS: BP 108/57
[2016-09-16] MEDS: Iron Sucrose 100 MG in NS 55 ML IVPB SCH (21:31)
[2016-09-17 00:16] VITALS: BP 123/62
[2016-09-17 04:00] VITALS: BP 107/58
[2016-09-17] MEDS: DiphenhydrAMINE 50mg/ml Inj IVP PRN ×5 (04:27→20:56)
[2016-09-17] MEDS: Liothyronine 5mcg tab ORAL SCH (06:34)
--- NOTE | 2016-09-17 06:56 | General Progress Note ---
Progress Note Progress Note AVSS c/o abdominal tightness, distention, pain. Unable to tolerate and clear liquids or plugging of gastrostomy Abdomen distended (moderate), soft, healing well Urine 700cc Gastrostomy 715 Kock pouch ileo only 155 Labs pending Imp. Post-op distention/pain increasing Plan: STAT CT scan abd+pelvis with oral and IV contrast Continue NPO EMILY DAVENPORT Sep 17, 2016 06:56
[2016-09-17] MEDS: PCA shift volume MISC SCH ×2 (07:11→19:13)
[2016-09-17 08:00] VITALS: BP 123/67
[2016-09-17] MEDS: Dyna-Hex 2% Top Sol 8oz TOPIC SCH (09:06)
[2016-09-17] MEDS: D5 1/4NS w/KCl 20mEq 1,000 ML IV SCH ×3 (09:06→22:21)
[2016-09-17] MEDS: Nystatin Susp 500,000 units/5ml ORAL SCH ×4 (10:13→22:14)
[2016-09-17] MEDS: LORazepam 1mg tab ORAL PRN ×2 (10:13→20:57)
--- NOTE | 2016-09-17 10:50 | Diagnostic Imaging Report ---
Clinical Indication: History of abdominal tightness, distention, pain. Unable to tolerate clear liquids for plugging of gastrostomy. History of total colectomy and continent ileostomy revision Technique: Patient given enteric contrast. IV administration nonionic contrast. Venous phase spiral acquisition obtained through the abdomen and pelvis. Multiplanar reconstructions were generated. Total dose length product 941 mGycm. CTDIvol(s) 18 mGy. Dose reduction achieved using automated exposure control Comparison: 08/04/2012 Findings: There are bilateral hip prostheses, which throw off streak artifact which may obscure pathology. There is a continent ileostomy pouch which is catheterized. The second portion of the duodenum is mildly dilated. There is suggestion of narrowing of the duodenal jejunal junction where it passes under the superior mesenteric artery. This appearance was also evident previously. Proximal small bowel loops are mildly distended, but there is progression of contrast through most of the small bowel. It does not quite reach the ileostomy pouch, however. No small bowel wall thickening. There is skin staple line distal left of midline. Air bubbles are seen within the incision. A small gas bubble is seen at the anterior peritoneal surface, and a small amount of free air is seen anterior to the left hepatic lobe and just under the left hemidiaphragm and over the dome of the spleen. There is a gastrostomy in place, the shaft of which extends a considerable distance into the stomach, with the balloon inflated in the gastric fundus. No free or loculated intraperitoneal fluid. The gallbladder is surgically absent. There is mild ectasia of the common bile duct, which measures 7 mm in diameter, but no definite downstream obstructive lesion. The pancreas, spleen, adrenals are unremarkable. The kidneys demonstrate mild bilateral hydronephrosis and hydroureter, which was also evident previously. The kidneys demonstrate subcentimeter low-attenuation lesions which are too small to characterize but also evident previously. The bladder is markedly distended, even more so than on the prior exam. A few small air bubbles are seen within the bladder. The previously demonstrated retrovesical fluid collection is no longer evident. There are trace bilateral pleural effusions, left slightly greater than right. There are some atelectatic changes at the left lung base. The bones demonstrate degenerative spondylosis changes. Impression: Post surgical changes, as described, status post ileostomy revision. No unusual features Small bowel loops are prominent and contrast does not quite reach the ileostomy pouch. However, doubt significant distal small bowel obstruction. There is mild dilatation of the duodenum and slight narrowing at the ligament of Treitz. The possibly of a mild nutcracker phenomenon should be considered, but is present this does not significantly impede forward flow of contrast. In addition, the left renal vein not significantly narrowed so this is not likely. Minimal postsurgical pneumoperitoneum. No worrisome fluid collections. Note, however, that in the pelvis pathology could be missed due to streak artifact from bilateral hip prostheses. Note that previously demonstrated rectovesical collection is no longer evident Markedly distended bladder. Mild bilateral hydronephrosis, suspect related to such Gas bubbles within the bladder. Most likely reflect recent instrumentation. If no history of recent instrumentation, then the possibility of emphysematous cystitis should be considered Gastrostomy Prior cholecystectomy. Mild biliary ductal ectasia, probably related to age and postcholecystectomy state, but correlation with liver function tests is recommended, consideration for MRCP if clinically indicated Trace bilateral pleural effusions, left greater than right. Left basilar atelectasis Findings discussed by phone with Radha Armijo at the time of interpretation The CT scanner at [facility] is accredited by the [employer] and the scans are performed using protocols designed to limit radiation exposure to as low as reasonably achievable to attain images of sufficient resolution adequate for diagnostic evaluation.
[2016-09-17 12:00] VITALS: BP 105/60
[2016-09-17 12:16] LABS: EOSINOPHILS % (AUTO) 3.2 % (0.0-3.0); MEAN CORPUSCULAR HEMOGLOBIN 25.4 PG (27.0-31.0); MEAN CORPUSCULAR HGB CONC 30.6 G/DL (32.0-36.0); MEAN CORPUSCULAR VOLUME 83 FL (80-99); MEAN PLATELET VOLUME 8.4 FL (6.5-10.1); MONOCYTES % (AUTO) 8.9 % (1.0-10.0); PLATELET COUNT 145 K/UL (150-450); RED BLOOD COUNT 4.56 M/UL (4.20-5.40); RED CELL DISTRIBUTION WIDTH 14.5 % (11.6-14.8); WHITE BLOOD COUNT 4.7 K/UL (4.8-10.8)
[2016-09-17 13:07] LABS: ANION GAP 12 (5-15); CALCIUM 9.3 mg/dL (8.6-10.2); CARBON DIOXIDE 26 mEQ/L (20-30); CHLORIDE 99 mEQ/L (98-107); CREATININE 0.7 mg/dL (0.5-0.9); GLOMERULAR FILTRATION RATE > 60 mL/min (>60); HEMOLYSIS 5; SODIUM 137 mEQ/L (135-145)
--- NOTE | 2016-09-17 13:50 | Diagnostic Imaging Report ---
Indication: Abdominal pain Technique: Supine and upright views of the abdomen Comparison: 08/08/2012 Findings: There are skin milana to the left of midline. Prominent gas-filled small bowel loops are seen. No free intraperitoneal air. No significant air-fluid level More numerous anastomotic milana are seen in the right lower quadrant, consistent with interim ileostomy pouch revision. Atelectatic changes are seen at the left lung base. Bilateral hip prostheses are again demonstrated Impression: Postsurgical changes, as described No definite acute process
[2016-09-17] MEDS ORDERED: Cathflo Alteplase 2mg Inj INJ PRN ×2 (15:15→15:16)
[2016-09-17 16:00] VITALS: BP 102/58
[2016-09-17 20:00] VITALS: BP 89/44
[2016-09-18] VITALS (8 sets, daily range): BP systolic 95–119; BP diastolic 56–77
[2016-09-18] MEDS: DiphenhydrAMINE 50mg/ml Inj IVP PRN ×5 (04:11→20:53)
[2016-09-18] MEDS: D5 1/4NS w/KCl 20mEq 1,000 ML IV SCH ×3 (04:22→18:07)
[2016-09-18] MEDS: PCA shift volume MISC SCH (07:00)
[2016-09-18] MEDS: Liothyronine 5mcg tab ORAL SCH (07:11)
[2016-09-18] MEDS ORDERED: Naloxone 0.4mg/ml Inj IVP PRN (08:42)
[2016-09-18] MEDS ORDERED: Rate Change PCA 1 Each MISC PRN (08:45)
[2016-09-18] MEDS ORDERED: Heplock Flush 100 units/ml 3 ml syr INJ PRN (08:45)
[2016-09-18] MEDS ORDERED: LORazepam 1mg tab SL PRN (08:45)
--- NOTE | 2016-09-18 08:52 | General Progress Note ---
Progress Note Progress Note AVSS CT scan revealed significant distention of bladder despite patient voiding good volumes. Gutierrez inserted for post-void residual of 650cc. Now she has no abd/GI complaints Abdomen soft, healing nicely, stoma pink Urine 3650 Gastrostomy 570 Kock pouch ileo 1190 (including contrast for CT scan) Imp. Urinary retention with past history of neurogenic bladder Ileus resolved Plan: Clear liquid diet; gastrostomy 3:3 protocol Keep Gutierrez in for 2-3 days to allow bladder to recover EMILY DAVENPORT Sep 18, 2016 08:52
[2016-09-18] MEDS: Nystatin Susp 500,000 units/5ml ORAL SCH ×4 (09:07→20:54)
[2016-09-18] MEDS: Dyna-Hex 2% Top Sol 8oz TOPIC SCH (09:09)
[2016-09-18] MEDS ORDERED: PCA HYDROmorphone 1mg/ml 30 ML IV PRN (10:00)
[2016-09-18] MEDS: LORazepam 1mg tab ORAL PRN ×2 (11:32→20:54)
[2016-09-18] MEDS: HydrOXYzine 50mg cap ORAL PRN (13:30)
[2016-09-18] MEDS ORDERED: PCA shift volume MISC SCH (19:00)
[2016-09-19 00:21] VITALS: BP 110/65
[2016-09-19] MEDS: DiphenhydrAMINE 50mg/ml Inj IVP PRN ×5 (01:22→17:52)
[2016-09-19 04:35] VITALS: BP 115/72
[2016-09-19] MEDS: D5 1/4NS w/KCl 20mEq 1,000 ML IV SCH (05:27)
[2016-09-19 08:00] VITALS: BP 92/52
[2016-09-19] MEDS ORDERED: Ascorbic Acid 500mg tab ORAL PRN (08:30)
--- NOTE | 2016-09-19 08:32 | General Progress Note ---
Progress Note Progress Note AVSS Did well with clear liquids and gastrostomy 3:3 Abdomen soft, flat, healing nicely Urine 3525 Gastrostomy 515 Kock Pouch ileo 440 Imp. Improved Plan: D/C IV fluids Plug gastrostomy continuously BCIR low residue diet Maintain continuous drainage of Kock Pouch continent ileostomy, EMILY Peterson Sep 19, 2016 08:32
[2016-09-19] MEDS: Nystatin Susp 500,000 units/5ml ORAL SCH ×4 (09:21→21:39)
[2016-09-19] MEDS: Liothyronine 5mcg tab ORAL SCH (09:21)
[2016-09-19] MEDS: Dyna-Hex 2% Top Sol 8oz TOPIC SCH (09:21)
[2016-09-19 12:00] VITALS: BP 96/55
[2016-09-19] MEDS: LORazepam 1mg tab SL PRN (13:03)
[2016-09-19 16:00] VITALS: BP 104/58
[2016-09-19] MEDS ORDERED: NS Irrig 1000ml ONE (16:56)
[2016-09-19] MEDS ORDERED: Tubing IV Secondary IV ONE (16:56)
[2016-09-19] MEDS: Norco 5mg/325mg tab ORAL PRN (19:06)
[2016-09-19 20:00] VITALS: BP 112/56
[2016-09-20] VITALS: BP 107/59
[2016-09-20] MEDS: DiphenhydrAMINE 50mg/ml Inj IVP PRN ×5 (00:23→23:31)
[2016-09-20] MEDS: Norco 5mg/325mg tab ORAL PRN ×6 (00:23→23:39)
[2016-09-20] MEDS: Liothyronine 5mcg tab ORAL SCH (06:30)
[2016-09-20 08:00] VITALS: BP 107/52
[2016-09-20] MEDS: Dyna-Hex 2% Top Sol 8oz TOPIC SCH (08:56)
[2016-09-20] MEDS: Nystatin Susp 500,000 units/5ml ORAL SCH ×4 (08:56→20:32)
[2016-09-20] MEDS ORDERED: NS Irrig 1000ml ONE (09:19)
[2016-09-20] MEDS ORDERED: NS 275ml ONE (09:19)
--- NOTE | 2016-09-20 10:09 | General Progress Note ---
Progress Note Progress Note AVSS Tolerated plugging of gastrostomy but poor oral intake of BCIR low residue diet Abdomen soft, flat, non-tender Gastrostomy removed Urine 1900 Kock pouch ileo 540 Imp. Slowly improving Plan: D/C urinary Gutierrez with frequent voiding and monitor residual with bladder scan prn D/C gastrostomy Will remove Kock pouch catheter in Am andj begin RN supervised self- intubations if stable EMILY DAVENPORT Sep 20, 2016 10:09
[2016-09-20 12:00] VITALS: BP 106/58
[2016-09-20 16:49] VITALS: BP 115/56
[2016-09-20 20:00] VITALS: BP 105/55
[2016-09-21] VITALS: BP 109/59
[2016-09-21 04:00] VITALS: BP 98/56
[2016-09-21] MEDS: Norco 5mg/325mg tab ORAL PRN ×4 (05:34→22:24)
[2016-09-21] MEDS: DiphenhydrAMINE 50mg/ml Inj IVP PRN ×3 (05:34→14:53)
[2016-09-21] MEDS: Liothyronine 5mcg tab ORAL SCH (06:30)
[2016-09-21] MEDS: Dyna-Hex 2% Top Sol 8oz TOPIC SCH (07:53)
[2016-09-21] MEDS: Nystatin Susp 500,000 units/5ml ORAL SCH ×4 (07:53→22:24)
[2016-09-21] MEDS: LORazepam 1mg tab SL PRN ×2 (08:00→16:26)
[2016-09-21 08:43] VITALS: BP 104/62
[2016-09-21] MEDS ORDERED: NS 275ml ONE (09:10)
[2016-09-21] MEDS ORDERED: Fluconazole 100mg tab ORAL STA (09:28)
--- NOTE | 2016-09-21 09:35 | General Progress Note ---
Progress Note Progress Note AVSS Doing well and eating better. some cramping relieved with Ativan. tongue still coated (thrush) Abdomen soft, flat; Cristian removed and steristrips applied Kock Pouch ileo catheter removed - reinserts readily Urine 2049 Kock pouch ileo 665 Imp. doing well Plan: RN supervised q3h Kock Pouch self-intubations D/C PIC line Rx [place] 5/325 #30; Ativan 1mg #30 anticipate discharge in AM if self-intubations go well EMILY DAVENPORT Sep 21, 2016 09:35
[2016-09-21 12:00] VITALS: BP 105/54
[2016-09-21 16:17] VITALS: BP 102/53
[2016-09-21] MEDS: HydrOXYzine 50mg cap ORAL PRN (22:23)
[2016-09-22] VITALS: BP 92/54
[2016-09-22 04:00] VITALS: BP 112/60
[2016-09-22] MEDS ORDERED: NORCO 5-325 TA1 EAC1 ORAL (05:25)
[2016-09-22] MEDS: Liothyronine 5mcg tab ORAL SCH (06:30)
--- NOTE | 2016-09-29 13:35 | Discharge Summary ---
Discharge Summary Hospital Course Date of Admission Sep 10, 2016 at 08:12 Date of Discharge Sep 22, 2016 at 06:15 Admitting Diagnosis Reason for Hospitalization: The patient is a 56-year-old HPI Renetta Connolly is a 56 year old female who was admitted on Sep 10, 2016 at 08:12 for Malfunctioning Kock Pouch The patient in overall stable health with a malfunctioning Kock pouch, continent ileostomy with difficulty with intubation and persistently painful intubations and some incontinence. patient was scheduled to undergo Kock pouch endoscopy and then depending on results subsequent surgery Consultations dr Heredia -cardio Procedures s/p Kock pouch endoscopy 09/[address] Armijo s/p 09/[address] Armijo 1. Laparotomy with revision of Kock pouch access segment and stoma. 2. Repair of recurrent parastomal hernia. 3. Catheter gastrostomy. Hospital Course s/p endoscopy 09/10 of Kock pouch with findings of partially slipped valve; recurrent parastomal hernia cardio seen and evaluated the patient and cleared for surgery s/p surgery pain management initially with 3D DESIGNER Dilaudid, d/c 09/14 initially NPO IVF was mobilized and able to ambulate started on Venofer IV Gutierrez d/c 09/16 IS at the bedside and encourage to use DVT prophylaxis cardio followed cardiac status stable stoma healing well monitor output of stoma CT A/P CT scan revealed significant distention of bladder despite patient voiding good volumes. Gutierrez reinserted for post-void residual of 650cc. Afterwards no abd/GI complaints CL diet started 09/18 , tolerated and advanced to full liquids IVF /dc on 09/19 and patient was started on low residue diet, monitor tolerance Continuous drainage of Kock Pouch continent ileostomy, Gutierrez was maintained Tolerated plugging of gastrostomy but poor oral intake of BCIR low residue diet Gastrostomy removed Gutierrez catheter dc 09/21 with frequent voiding and monitor residual with bladder scan prn Gastrostomy dc 09/21 Kock pouch catheter was dc and started on RN supervised self-intubations RN supervised q3h Kock Pouch self-intubations PICC d/c Rx for [place] 5/325 #30; Ativan 1mg #30 provided Cleared for discharge with outpatient follow up FINAL DIAGNOSES 1. Malfunctioning Kock pouch continent ileostomy and recurrent parastomal hernia. 2. History of multiple abdominal operations: 3. 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 3.1. Total colectomy with ileoanal J-pouch in 1992. 3.2. Kock pouch 1998. 3.3. Repair of Kock pouch parastomal hernia 2004. 3.4. Total abdominal hysterectomy 2010. 3.5. Laparotomy with complex revision of Kock pouch with creation of new valve and stoma with extensive lysis of adhesions and repair of parastomal hernia and temporary catheter gastrostomy in July 2012. 4. s/p 09/11/16 4.1. Laparotomy with revision of Kock pouch access segment and stoma. 4.2. Repair of recurrent parastomal hernia. 4. 3. Catheter gastrostomy. 5. Ileus 6. Anemia , iron deficiency Discharge Medications Continued Medications: Levothyroxine Sodium* (Synthroid*) 112 Mcg Tablet 112 MCG ORAL DAILY, #10 TAB Liothyronine Sodium* (Cytomel*) 25 Mcg Tablet 50 MG ORAL DAILY Discharge Condition Upon Discharge: stable Discharge Disposition Patient was discharged to Home () Discharge Diagnoses: Rl ([facility])Supriya NP Sep 29, 2016 13:35
== END 2016-09-22 06:15 | disposition home or self-care (01) | DRG 327 ==
LOC: 3E 09-10 08:12 → 2E 09-11 16:40 → 3E 09-12 08:40
PROC: 0DJD8ZZ Inspection of Lower Intestinal Tract, Via Natural or Artificial Opening Endoscopic (ICD-10-PCS; principal; 2016-09-10 11:45)
PROC: 02HV33Z Insertion of Infusion Device into Superior Vena Cava, Percutaneous Approach (ICD-10-PCS; principal; 2016-09-10 11:45)
PROC: B548ZZA Ultrasonography of Superior Vena Cava, Guidance (ICD-10-PCS; principal; 2016-09-10 11:45)
PROC: 0DH60UZ Insertion of Feeding Device into Stomach, Open Approach (ICD-10-PCS; 2016-09-11)
PROC: 0WQF0ZZ Repair Abdominal Wall, Open Approach (ICD-10-PCS; 2016-09-11)
PROC: 0D1B0Z4 Bypass Ileum to Cutaneous, Open Approach (ICD-10-PCS; 2016-09-11)
DX: K94.13 Enterostomy malfunction (principal); K56.7 Ileus, unspecified; I20.1 Angina pectoris with documented spasm; N31.9 Neuromuscular dysfunction of bladder, unspecified; Y83.8 Other surgical procedures as the cause of abnormal reaction of the patient, or of later complication, without mention of misadventure at the time of the procedure; Y92.018 Other place in single-family (private) house as the place of occurrence of the external cause; E03.9 Hypothyroidism, unspecified; Z90.710 Acquired absence of both cervix and uterus; K43.5 Parastomal hernia without obstruction or gangrene; R33.9 Retention of urine, unspecified; D50.9 Iron deficiency anemia, unspecified; Z87.891 Personal history of nicotine dependence
CPT/HCPCS: 36415; 36569; 71010; 74020; 74177; 76937; 80048; 80053; 81001; 82607; 82746; 83540; 83550; 85025; 85610; 85730; 86850; 86900; 86901; 87086; 93005; 94003; 94150; J2180; J2250; J2405; J2710